=== PATIENT | male | born 1975 | race Two or more races ===

== ENCOUNTER 2016-10-28 12:30 | Inpatient (IN) | payer MEDICARE, BC, MEDICAID ==
[~2016-10-28] VITALS: Ht 167.6 cm; Wt 72.6 kg
[2016-10-28 12:00] VITALS: BP 152/91
[~2016-10-28 12:30] MED LIST: Folic Acid PO; LEVE1000 PO; PANT40TA2 PO; TRAM50TA2 PO
[2016-10-28] MEDS ORDERED: IV NS 0.9% 1,000 ML ONE (13:00)
[2016-10-28] MEDS ORDERED: diphenhydrAMINE HCL 50 MG/ML VIAL IV ONE ×2 (13:00→15:30)
[2016-10-28] MEDS ORDERED: HYDROMORPHONE INJ 2 MG/ML DISP.SYRIN IV ONE (13:00)
[2016-10-28] MEDS ORDERED: IV NS 0.9% 1,000 ML BAG IV ONE (13:00)
[2016-10-28] MEDS ORDERED: diphenhydrAMINE HCL 50 MG/ML VIAL ONE (13:00)
[2016-10-28] MEDS ORDERED: ONDANSETRON HCL/PF 4 MG/2 ML VIAL ONE (13:00)
[2016-10-28] MEDS ORDERED: HYDROMORPHONE INJ 2 MG/ML DISP.SYRIN ONE (13:00)
[2016-10-28] MEDS ORDERED: OCTREOTIDE 1,250 MCG in IV NS 0.9% 250 ML IV ONE (13:00)
[2016-10-28] MEDS ORDERED: OCTREOTIDE 50 MCG/ML AMPUL IV ONE (13:00)
[2016-10-28] MEDS ORDERED: ONDANSETRON HCL/PF 4 MG/2 ML VIAL IVP ONE (13:00)
[2016-10-28] MEDS ORDERED: IV SET PRIMARY PUMP SET 1 EA INFUS.SET MC ONE ×2 (13:00→17:26)
[2016-10-28] MEDS ORDERED: OCTREOTIDE 100 MCG/ML VIAL ONE (13:01)
[2016-10-28 13:20] LABS: BASOPHILS % (AUTO) 0.4 % (0.0-2.0); DIFF TOTAL % 100 %; EOSINOPHILS # (AUTO) 0.1 /CMM (0.0-0.7); EOSINOPHILS % (AUTO) 3.7 % (0.0-6.0); HEMATOCRIT 41 % (39-51); LYMPHOCYTES # (AUTO) 0.8 /CMM (0.8-4.8); LYMPHOCYTES % (AUTO) 28.7 % (20.0-44.0); MEAN CORPUSCULAR HEMOGLOBIN 29 PG (26.0-33.0); MEAN CORPUSCULAR HGB CONC 34 g/dl (31.0-36.0); MEAN CORPUSCULAR VOLUME 86 fL (80-96); MONOCYTES # (AUTO) 0.2 /CMM (0.1-1.30); MONOCYTES % (AUTO) 7.5 % (2.0-12.0); NEUTROPHILS # (AUTO) 1.6 /CMM (1.8-8.9); NEUTROPHILS % (AUTO) 59.7 % (43.0-81.0); WHITE BLOOD COUNT (AUTO) 2.7 K/uL (4.3-11.0)
[2016-10-28 13:24] LABS: PLATELET COUNT (AUTO) 42 /CMM (150-450)
[2016-10-28 13:37] LABS: CALCIUM, SERUM 8.5 mg/dL (8.5-10.1); CREATININE 0.7 mg/dL (0.6-1.3); POTASSIUM 3.5 mmol/L (3.5-5.1)
[2016-10-28 13:39] LABS: INR 1.23 (0.87-1.13); PROTHROMBIN TIME 13.3 SECS (9.5-12.7)
[2016-10-28 13:44] LABS: ALBUMIN 3.8 g/dL (3.4-5.0); BILIRUBIN,DIRECT 0.6 mg/dL (0.0-0.2); BILIRUBIN,TOTAL 3.2 mg/dL (0.2-1.0); INDIRECT BILIRUBIN 2.6 mg/dL (0.0-1.1)
[2016-10-28 13:46] LABS: BAND % (MANUAL) 1 % (0.0-5.0); EOSINOPHILS % (MANUAL) 4 % (0-4); LYMPHOCYTES % (MANUAL) 30 % (16-48); PLATELET ESTIMATE DECREASED
[2016-10-28] MEDS ORDERED: ZOLPIDEM TARTRATE 5 MG TABLET PO PRN (14:00)
[2016-10-28] MEDS ORDERED: PANTOPRAZOLE 80 MG in IV NS 0.9% 100 ML IV SCH (14:00)
[2016-10-28] MEDS ORDERED: Z GUARD REMEDY 2 OZ OINT TP PRN (14:00)
[2016-10-28] MEDS ORDERED: MAG HYDROX/AL HYDROX/SIMETH 30 ML UDC PO PRN (14:00)
[2016-10-28] MEDS ORDERED: HYDROCODONE/APAP 5/325MG 1 EACH TABLET PO PRN (14:00)
[2016-10-28] MEDS ORDERED: OCTREOTIDE 1,250 MCG in IV NS 0.9% 247.5 ML IV PRN (14:00)
[2016-10-28] MEDS ORDERED: MAGNESIUM HYDROXIDE 30 ML UDC PO PRN (14:00)
[2016-10-28] MEDS ORDERED: ACETAMINOPHEN 325 MG TABLET PO PRN (14:00)
[2016-10-28] MEDS ORDERED: ONDANSETRON HCL/PF 4 MG/2 ML VIAL IVP PRN (14:00)
[2016-10-28] MEDS ORDERED: CEFTRIAXONE 1GM BAG (ER ONLY) 1 GM/50 ML PIGGYBACK IV ONE (14:30)
[2016-10-28] MEDS ORDERED: LEVETIRACETAM (500MG) 500 MG in IV NS 0.9% 100 ML IV SCH (14:30)
[2016-10-28] MEDS ORDERED: CEFTRIAXONE 1GM BAG (ER ONLY) 1 GM/50 ML PIGGYBACK IV SCH (15:00)
[2016-10-28] MEDS ORDERED: LACTULOSE 10 G/15 ML UDC (PYXIS) PO PRN (15:00)
[2016-10-28] MEDS ORDERED: MORPHINE SULFATE INJ 2 MG/ML DISP.SYRIN IV PRN (15:30)
[2016-10-28 16:00] VITALS: BP 131/81
[2016-10-28] MEDS ORDERED: SECONDARY IV SET 1 EA INFUS.SET MC ONE (17:26)
[2016-10-28] MEDS: diphenhydrAMINE HCL 50 MG/ML VIAL IV PRN ×2 (17:53→21:32)
[2016-10-28] MEDS: IV NS 0.9% 1,000 ML IV SCH (17:54)
[2016-10-28] MEDS ORDERED: CEFTRIAXONE 1 G in IV D5W 50 ML IV SCH (18:00)
[2016-10-28] MEDS ORDERED: PANTOPRAZOLE 80 MG in IV NS 0.9% 100 ML IV PRN (18:30)
[2016-10-28 18:33] LABS: HEMOGLOBIN 12.4 g/dL (13.5-17.5)
[2016-10-28] MEDS: HYDROMORPHONE 1 MG/1 ML DISP.SYRIN IV PRN (20:23)
[2016-10-28 20:54] VITALS: BP 132/81
[2016-10-28] MEDS: PANTOPRAZOLE 80 MG in IV NS 0.9% 500 ML IV PRN (21:10)
[2016-10-28] MEDS: LEVETIRACETAM (250 MG) 250 MG TABLET PO SCH (21:25)
[2016-10-29] VITALS: BP 119/69
[2016-10-29] MEDS: diphenhydrAMINE HCL 50 MG/ML VIAL IV PRN ×3 (01:28→14:56)
[2016-10-29] MEDS: HYDROMORPHONE 1 MG/1 ML DISP.SYRIN IV PRN ×4 (01:41→14:57)
[2016-10-29] MEDS: IV NS 0.9% 1,000 ML IV SCH (02:33)
[2016-10-29 04:38] VITALS: BP 134/79
[2016-10-29] MEDS ORDERED: PLATELET IV SET 1 EA INFUS.SET MC ONE (05:08)
[2016-10-29 06:44] VITALS: BP 120/74
[2016-10-29 07:00] VITALS: BP 133/84
[2016-10-29] MEDS ORDERED: PANTOPRAZOLE 40 MG TABLET.DR PO SCH (07:30)
[2016-10-29 08:00] VITALS: BP 124/74
[2016-10-29] MEDS: PANTOPRAZOLE 80 MG in IV NS 0.9% 500 ML IV PRN (08:51)
[2016-10-29] MEDS: LEVETIRACETAM (250 MG) 250 MG TABLET PO SCH (09:00)
[2016-10-29] MEDS ORDERED: METO-295 PO (12:24)
[2016-10-29 13:48] LABS: BASOPHILS % (AUTO) 1.2 % (0.0-2.0); DIFF TOTAL % 100 %; EOSINOPHILS # (AUTO) 0.1 /CMM (0.0-0.7); EOSINOPHILS % (AUTO) 5.3 % (0.0-6.0); HEMATOCRIT 39 % (39-51); HEMOGLOBIN 12.7 g/dL (13.5-17.5); LYMPHOCYTES # (AUTO) 0.5 /CMM (0.8-4.8); MEAN CORPUSCULAR HEMOGLOBIN 29 PG (26.0-33.0); MEAN CORPUSCULAR HGB CONC 33 g/dl (31.0-36.0); MEAN CORPUSCULAR VOLUME 87 fL (80-96); MONOCYTES # (AUTO) 0.2 /CMM (0.1-1.30); MONOCYTES % (AUTO) 8.8 % (2.0-12.0); NEUTROPHILS # (AUTO) 1.3 /CMM (1.8-8.9); NEUTROPHILS % (AUTO) 61.7 % (43.0-81.0); RED BLOOD CELL COUNT(AUTO) 4.43 MIL/uL (4.5-6.0); WHITE BLOOD COUNT (AUTO) 2.2 K/uL (4.3-11.0)
[2016-10-29 13:53] LABS: PLATELET COUNT (AUTO) 43 /CMM (150-450)
[2016-10-29 14:04] LABS: INR 1.3 (0.87-1.13); PROTHROMBIN TIME 14.1 SECS (9.5-12.7)
[2016-10-29 14:19] LABS: ALBUMIN 3.2 g/dL (3.4-5.0); BILIRUBIN,DIRECT 0.4 mg/dL (0.0-0.2); BILIRUBIN,TOTAL 3.1 mg/dL (0.2-1.0); CALCIUM, SERUM 7.9 mg/dL (8.5-10.1); CREATININE 0.9 mg/dL (0.6-1.3); INDIRECT BILIRUBIN 2.7 mg/dL (0.0-1.1); PHOSPHORUS 3.5 mg/dL (2.5-4.9); POTASSIUM 3.4 mmol/L (3.5-5.1); TOTAL PROTEIN, SERUM 6.2 g/dL (6.4-8.2)
[2016-10-29 15:01] LABS: THYROID STIMULATING HORMONE 1.69 uIU/mL (0.358-3.74)
[2016-10-29 15:46] LABS: BAND % (MANUAL) 0 % (0.0-5.0); BASOPHILS % (MANUAL) 0 % (0.0-2.0); EOSINOPHILS % (MANUAL) 2 % (0-4); LYMPHOCYTES % (MANUAL) 33 % (16-48)
[2016-10-29 15:48] LABS: PLATELET ESTIMATE DECREASED; RBC MORPHOLOGY COMMENT NORMAL RBC MORPH
[2016-10-29] MEDS ORDERED: LIDOCAINE 1% INJ 50 ML MDV IJ ONE (20:30)
[2016-11-01 07:14] LABS: *SPE ALBUMIN 3.3 g/dL (2.9-4.4)
== END 2016-10-29 16:15 | disposition home or self-care (01) | DRG 378 ==
LOC: ER 12:32 → TELE 14:04 → MED 10-29 11:12
PROVIDERS: ADMIT Student in an Organized Health Care Education/Training Program; ATTEND Student in an Organized Health Care Education/Training Program
PROC: 07DR3ZX Extraction of Iliac Bone Marrow, Percutaneous Approach, Diagnostic (ICD-10-PCS; 2016-10-29)
PROC: 0DJ08ZZ Inspection of Upper Intestinal Tract, Via Natural or Artificial Opening Endoscopic (ICD-10-PCS; principal; 2016-10-29 09:05)
DX: K92.2 Gastrointestinal hemorrhage, unspecified (principal); K76.6 Portal hypertension; D61.818 Other pancytopenia; K72.90 Hepatic failure, unspecified without coma; K74.69 Other cirrhosis of liver; K31.84 Gastroparesis; Z87.11 Personal history of peptic ulcer disease; G40.909 Epilepsy, unspecified, not intractable, without status epilepticus; D69.59 Other secondary thrombocytopenia; I10 Essential (primary) hypertension; Z76.82 Awaiting organ transplant status; Z87.891 Personal history of nicotine dependence
CPT/HCPCS: 36415; 80048-TC; 80061-TC; 80076-TC; 82105; 82728-TC; 82746; 83540-TC; 83690-TC; 83735-TC; 84100-TC; 84155; 84165; 84439-TC; 84443-TC; 85025-TC; 85027-TC; 85045-TC; 85610-TC; 85730-TC; 86850-TC; 86901; 87081-TC; A4606; C9113; J0696; J1170; J1200; J2354; J2405; J3490; J7030; J7040; J7050; J7060; P9016-BL; P9034-BL; Z7610

== ENCOUNTER 2017-05-11 16:00 | Emergency (ER) | payer BC, MEDICAID ==
[~2017-05-11] VITALS: Ht 172.7 cm; Wt 70.3 kg
[~2017-05-11 16:00] MED LIST changes: +METO-295 PO
--- NOTE | 2017-05-11 16:17 | NUR ---
pt ambulatory to er bed 10. c/o l sided abdominal pain w hematemesis. states was seen at [place] for gi bleed but went [facility]. gowned and placed on monitor. nad noted. awaiting md gandhi.
--- NOTE | 2017-05-11 16:31 | NUR ---
CALLED [facility] TO REQUEST PT RESULTS FROM HIS VISIT THIS MORNING TO [facility]
--- NOTE | 2017-05-11 16:33 | NUR ---
dr calhoun at bedside for eval.
--- NOTE | 2017-05-11 16:37 | NUR ---
CALLED [facility], SPOKE WITH ER, TRANSFERRED CALL TO
--- NOTE | 2017-05-11 16:38 | NUR ---
iv line started blood drawn and sent to lab.
[2017-05-11] MEDS ORDERED: diphenhydrAMINE HCL 50 MG/ML VIAL ONE (16:44)
[2017-05-11] MEDS ORDERED: FAMOTIDINE/PF INJ 20 MG/2 ML VIAL IV ONE ×2 (16:44→17:00)
[2017-05-11] MEDS ORDERED: ONDANSETRON HCL/PF 4 MG/2 ML VIAL ONE (16:44)
[2017-05-11 16:55] LABS: CALCIUM, SERUM 8.1 mg/dL (8.5-10.1); CREATININE 0.6 mg/dL (0.6-1.3); POTASSIUM 3.7 mmol/L (3.5-5.1)
[2017-05-11] MEDS ORDERED: ONDANSETRON HCL/PF 4 MG/2 ML VIAL IVP ONE (17:00)
[2017-05-11] MEDS ORDERED: IV NS 0.9% 1,000 ML BAG IV ONE (17:00)
[2017-05-11] MEDS ORDERED: diphenhydrAMINE HCL 50 MG/ML VIAL IV ONE (17:00)
[2017-05-11 17:01] LABS: ALBUMIN 3.6 g/dL (3.4-5.0); BILIRUBIN,DIRECT 0.5 mg/dL (0.0-0.2); BILIRUBIN,TOTAL 2.1 mg/dL (0.2-1.0); TOTAL PROTEIN, SERUM 5.8 g/dL (6.4-8.2)
[2017-05-11 17:04] LABS: BASOPHILS % (AUTO) 1.7 % (0.0-2.0); EOSINOPHILS # (AUTO) 0.1 /CMM (0.0-0.7); EOSINOPHILS % (AUTO) 2.1 % (0.0-6.0); HEMATOCRIT 37 % (39-51); HEMOGLOBIN 12.1 g/dL (13.5-17.5); LYMPHOCYTES # (AUTO) 0.6 /CMM (0.8-4.8); LYMPHOCYTES % (AUTO) 20.7 % (20.0-44.0); MEAN CORPUSCULAR HEMOGLOBIN 29 PG (26.0-33.0); MEAN CORPUSCULAR HGB CONC 33 g/dl (31.0-36.0); MEAN CORPUSCULAR VOLUME 90 fL (80-96); MONOCYTES # (AUTO) 0.2 /CMM (0.1-1.30); MONOCYTES % (AUTO) 9.1 % (2.0-12.0); NEUTROPHILS # (AUTO) 1.8 /CMM (1.8-8.9); NEUTROPHILS % (AUTO) 66.4 % (43.0-81.0); RDW COEFFICIENT OF VARIATION 15.1 (11.5-15.0); RED BLOOD CELL COUNT(AUTO) 4.14 MIL/uL (4.5-6.0); WHITE BLOOD COUNT (AUTO) 2.7 K/uL (4.3-11.0)
[2017-05-11 17:05] LABS: PLATELET COUNT (AUTO) 23 /CMM (150-450)
[2017-05-11 17:27] VITALS: BP 128/77
== END 2017-05-11 17:28 | disposition home or self-care (01) ==
LOC: ER 16:07
DX: R11.10 Vomiting, unspecified (principal); D69.6 Thrombocytopenia, unspecified; I85.00 Esophageal varices without bleeding; K74.60 Unspecified cirrhosis of liver; Z87.19 Personal history of other diseases of the digestive system; Z76.5 Malingerer [conscious simulation]; Z90.49 Acquired absence of other specified parts of digestive tract; Z88.6 Allergy status to analgesic agent
CPT/HCPCS: 36415; 80048-TC; 80076-TC; 83690-TC; 85025-TC; A4606; J1200; J2405; J3490; J7030; Z7610